=== PATIENT | male | born 1950 | race Caucasian/White ===

== ENCOUNTER 2021-10-28 07:30 | Outpatient (RCR) | payer MEDICARE, BC, SELFPAY | END 2021-10-28 09:37 | disposition home or self-care (01) | PROVIDERS: Visit Provider Nurse Practitioner Family | DX: I89.0 Lymphedema, not elsewhere classified (principal); C61 Malignant neoplasm of prostate; Z51.89 Encounter for other specified aftercare | CPT/HCPCS: 97530; 97535 ==

== ENCOUNTER 2021-12-08 13:12 | Outpatient (CLI) | payer MEDICARE, BC, SELFPAY ==
--- NOTE | 2021-12-08 13:45 | MR_ITS ---
[address] [address] Phone:?[phone] Fax:?[phone] Referring Physician Information: Parth Fernandes M.D. [id number] [facility] [address] Phone:?[phone] Fax:?[phone] Patient:?Dell Krishna D.O.B:?1950 Sex:?Male Phone:?[phone] [facility] MRN:?[id number] Exam Date:?12/08/2021 ? EXAM: MRI EXAMINATION OF THE RIGHT KNEE CLINICAL INFORMATION: Right knee pain. No specific injury. No history of surgery to this area. Evaluate meniscal tear. TECHNICAL INFORMATION: Coronal PD and STIR. Axial PD and T2 fat saturation. Sagittal PD and PD fat saturation images acquired. INTERPRETATION: Bones: There are mild changes of subchondral edema signal involving the weightbearing surfaces of the medial joint compartment. Localized mild subchondral edema signal involves the posterior medial surface of the lateral tibial plateau. No evidence for an occult fracture or AVN. No other abnormal bone marrow edema pattern is identified. Ligaments and tendons: The medial collateral ligament is intact, without acute sprain or tear. The iliotibial band, fibular collateral ligament, biceps femoris tendon and popliteus tendon all are intact. The anterior cruciate ligament is intact without acute sprain or tear. The posterior cruciate ligament is intact. Extensor Mechanism: The patellar and quadriceps tendons are intact. The medial and lateral retinacula are intact. Knee Joint: There is a small knee joint effusion. There is a moderate-sized popliteal cyst. Mild synovitis. Series 6 image 13 demonstrates a slender ovoid 9 mm ossific loose body within the popliteus tendon sheath. 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 Broad grade 3 and IV chondromalacia involves the medial femoral condyle. Tearing and moderate truncation involves the body of the medial meniscus. Meniscal tissue is flipped or subluxed around the corner along side the periphery of the femoral condyle. There is tearing and moderate to marked truncation throughout the posterior horn. No parameniscal cyst. Lateral Compartment: Poorly defined tearing involves the inner portion and apical margin within the body of the lateral meniscus. There is a slender horizontal appearance of tearing continuing within the posterior horn. More complex tearing continues involving the posterior root insertion. No displaced flap fragment or parameniscal cyst. There are grade 3-4 changes of correlation along the posterior medial surface of the lateral tibial plateau. There is a 1 x 1.2 cm segment of grade 3 to IV chondromalacia of the posterior weightbearing surface of the lateral femoral condyle. Patellofemoral articulation: There is a 1 cm craniocaudal slender segment of grade 3 to IV chondromalacia involving the central surface of the medial patellar facet. No other significant chondromalacia. CONCLUSION: 1. 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 2. Tearing and moderate truncation of the body of meniscus with meniscal tissue flipped or subluxed around the corner along side the femoral condyle. Tearing and additional moderate to marked truncation throughout the posterior horn. 3. Poorly defined tearing of the body lateral meniscus. Horizontal tearing continues within the posterior horn with more complex tearing of the posterior root insertion. 4. There is a small to moderate-sized segment of grade III to IV chondromalacia of the lateral femoral condyle. Additional grade III to IV correlation along the posterior medial surface of the lateral tibial plateau. 5. There is a small to moderate-sized, slender segment of grade III to IV chondromalacia involving the medial patellar facet. 6. There is a small knee joint effusion and moderate-sized popliteal cyst. There is a slender ovoid 9 mm loose body within the popliteus tendon sheath. [facility]ES Electronically signed on 12/08/2021 4:15:00 PM by Frandy Fry M.D.
== END 2021-12-08 13:13 | disposition home or self-care (01) ==
LOC: MRI 13:13
PROVIDERS: PCP Family Medicine; Visit Provider Orthopaedic Surgery
DX: M25.561 Pain in right knee (principal); M17.11 Unilateral primary osteoarthritis, right knee; M94.261 Chondromalacia, right knee; M23.206 Derangement of unspecified meniscus due to old tear or injury, right knee; M25.461 Effusion, right knee
CPT/HCPCS: 73721